=== PATIENT | female | born 1975 | race Caucasian/White ===

== ENCOUNTER → 2023-11-20 19:12 | Outpatient (REF) | payer BC, SELFPAY | LOC: WDC 19:12 | PROVIDERS: ATTENDING PHYSICIAN Obstetrics & Gynecology | DX: Z12.31 Encounter for screening mammogram for malignant neoplasm of breast (principal) | CPT/HCPCS: 77063; 77067 ==

== ENCOUNTER → 2025-01-06 16:12 | Outpatient (REF) | payer BC, SELFPAY | LOC: WDC 16:12 | PROVIDERS: ATTENDING PHYSICIAN Obstetrics & Gynecology | DX: Z12.31 Encounter for screening mammogram for malignant neoplasm of breast (principal) | CPT/HCPCS: 77063; 77067 ==